=== PATIENT | female | born 1985 | race Caucasian/White ===

== ENCOUNTER 2016-12-15 23:23 | Emergency (ER) | payer OTHER ==
[~2016-12-15] VITALS: Ht 172.7 cm; Wt 96.8 kg
[~2016-12-15 23:23] MED LIST: AMOXICILLIN500 MG PO; BACTROBAN2 % EX; FLONASE0.05 %; MEDDOSEPAK OR; NAPROSYN500 MG PO; NO CURRENT MEDS; NO HOME MEDS; PREDNISONE10 MG PO; ULTRAM50 MG PO; ZYRTEC10 MG OR
[2016-12-16 00:22] LABS: HEMATOCRIT 40.9 % (37.0-47.0); HEMOGLOBIN 14.2 g/dl (12.0-16.0); IMMATURE GRANULOCYTES 0.2 % (0.0-1.0); MEAN CELL VOLUME 91.7 fL CALC (80.0-100.0); MEAN CORPUSCULAR HGB 31.8 pG CALC (26.0-32.0); MEAN CORPUSCULAR HGB CONC 34.7 g/L CALC (32.0-36.0); NEUT# 2.88 thou/uL (2.00-7.15); RED BLOOD COUNT 4.46 mill/uL (4.20-5.60); RED CELL DISTRI WIDTH 11.9 % (11.5-15.5)
[2016-12-16 00:22] LABS: URINE BILIRUBIN - DIPSTICK NEGATIVE (NEGATIVE); URINE BLOOD DIPSTICK NEGATIVE (NEGATIVE); URINE CLARITY TURBID; URINE COLOR YELLOW; URINE GLUCOSE - DIPSTICK NEGATIVE (NEGATIVE); URINE KETONE NEGATIVE (NEGATIVE); URINE LEUK ESTERASE NEGATIVE (NEGATIVE); URINE NITRITE - DIPSTICK POSITIVE (Negative); URINE PH 5.5 (4.5-8.0); URINE PROTEIN - DIPSTICK 30 mg/dL (NEG-TRACE); URINE SPECIFIC GRAVITY >=1.030
[2016-12-16 00:32] LABS: URINE BACTERIA MODERATE hpf; URINE CALCIUM OXALATE CRYSTALS MODERATE lpf; URINE MUCUS MANY hpf (NONE-FEW); URINE RBC 0-2 RBC/hpf (0-5); URINE SQUAMOUS EPITHELIAL CELL MANY EPI/hpf (0-FEW)
[2016-12-16 00:37] LABS: ALBUMIN 4.6 g/dL (3.2-5.0); ALKALINE PHOSPHATASE 39 u/l (38-126); ANION GAP 16 (6-22 (CALC)); BILIRUBIN, TOTAL 1.1 mg/dL (0.0-1.4); BUN 10 mg/dL (7-17); BUN/CREATININE RATIO 14 (12-20 (CALC)); CALCIUM 9.7 mg/dL (8.4-10.2); CARBON DIOXIDE 27 mmol/l (22-30); CHLORIDE 103 mmol/l (95-108); CREATININE 0.7 mg/dL (0.5-1.0); GFR > 60 ML/MIN (>=60 (CALC)); GFR FOR AFR.AMER. > 60 ML/MIN (>=60 (CALC)); GLUCOSE 99 mg/dL (65-105); POTASSIUM 3.9 mmol/l (3.5-5.1); SGOT/AST 23 u/l (14-36); SGPT/ALT 35 u/l (9-52); SODIUM 142 mmol/l (137-146)
[2016-12-16] MEDS ORDERED: CIPROFLOXACN500 MG PO (00:52)
[2016-12-16 01:10] VITALS: BP 137/93
== END 2016-12-16 01:11 | disposition home or self-care (01) | DRG 690 ==
LOC: ED 23:23
PROVIDERS: Emergency Medicine
DX: N39.0 Urinary tract infection, site not specified (principal); B96.1 Klebsiella pneumoniae [K. pneumoniae] as the cause of diseases classified elsewhere; F17.210 Nicotine dependence, cigarettes, uncomplicated

== ENCOUNTER 2017-07-11 10:51 | Emergency (ER) | payer SELFPAY ==
[~2017-07-11] VITALS: Ht 172.7 cm; Wt 91.0 kg
[~2017-07-11 10:51] MED LIST changes: +CIPROFLOXACN500 MG PO
[2017-07-11 12:24] VITALS: BP 136/84
== END 2017-07-11 12:24 | disposition home or self-care (01) | DRG 605 ==
LOC: ED 10:51
DX: S80.11XA Contusion of right lower leg, initial encounter (principal); M25.571 Pain in right ankle and joints of right foot; W06.XXXA Fall from bed, initial encounter; Y92.003 Bedroom of unspecified non-institutional (private) residence as the place of occurrence of the external cause